=== PATIENT | male | born 1965 ===

== ENCOUNTER 2022-08-14 15:34 | Outpatient (RCR) | payer OTHER, SELFPAY | END 2022-08-31 23:59 | disposition home or self-care (01) | LOC: CR 15:34 | PROVIDERS: Family Provider Nurse Practitioner; PCP Internal Medicine Cardiovascular Disease; Visit Provider Family Medicine | DX: Z95.1 Presence of aortocoronary bypass graft (principal) | CPT/HCPCS: 93798 ==

== ENCOUNTER 2022-09-03 09:48 | Outpatient (RCR) | payer OTHER, SELFPAY | END 2022-09-30 23:59 | disposition home or self-care (01) | LOC: CR 09:48 | PROVIDERS: Family Provider Nurse Practitioner; PCP Internal Medicine Cardiovascular Disease; Visit Provider Family Medicine | DX: Z95.1 Presence of aortocoronary bypass graft (principal) | CPT/HCPCS: 93798 ==

== ENCOUNTER 2022-10-01 14:14 | Outpatient (RCR) | payer OTHER, SELFPAY | END 2022-10-31 23:59 | disposition home or self-care (01) | LOC: CR 14:14 | PROVIDERS: Family Provider Nurse Practitioner; PCP Internal Medicine Cardiovascular Disease; Visit Provider Family Medicine | DX: Z95.1 Presence of aortocoronary bypass graft (principal) | CPT/HCPCS: 93798 ==

== ENCOUNTER 2022-11-02 10:47 | Outpatient (RCR) | payer OTHER, SELFPAY | END 2022-11-30 23:59 | disposition home or self-care (01) | LOC: CR 10:47 | PROVIDERS: Family Provider Nurse Practitioner; PCP Internal Medicine Cardiovascular Disease; Visit Provider Family Medicine | DX: Z95.1 Presence of aortocoronary bypass graft (principal) | CPT/HCPCS: 93798 ==

== ENCOUNTER 2022-12-03 13:53 | Outpatient (RCR) | payer OTHER, SELFPAY | END 2022-12-31 23:59 | disposition home or self-care (01) | LOC: CR 13:53 | PROVIDERS: Family Provider Nurse Practitioner; PCP Internal Medicine Cardiovascular Disease; Visit Provider Family Medicine | DX: Z95.1 Presence of aortocoronary bypass graft (principal) | CPT/HCPCS: 93798 ==